=== PATIENT | female | born 1985 | race Caucasian/White ===

== ENCOUNTER → 2022-10-27 | Outpatient (CLI) | payer MEDICARE, MEDICAID, SELFPAY ==
--- NOTE | 2022-10-27 11:02 | RAD_ITS ---
INDICATION: POSTLAMINECTOMY SYNDROME -- CHECK SPINAL CORD STIM LEADS EXAMINATION/TECHNIQUE: X-RAY - XR Spine Lumbar 2 or 3 Views COMPARISON: Thoracic spine radiograph on same day. FINDINGS: VERTEBRAE: 5 nonrib-bearing lumbar-type vertebra with normal morphology. Prior laminectomy and posterior transpedicular fixation L5-S1 with disc spacer. No evidence of hardware failure. No fracture or acute compression deformity. No spondylolisthesis. Preservation of the normal lumbar lordosis. No significant facet arthropathy. DISCS: Disc spaces are maintained. INCLUDED ABDOMEN: Right upper quadrant surgical clips are present. Dual-lead intrathecal nerve stimulator noted entering at T12-L1 and projecting cephalad without evidence of lead disruption in the study field of view. RAD/Lumbar Spine 2 or 3 Views IMPRESSION: Intrathecal nerve stimulator as above. Laminectomy changes without evidence of hardware failure. No evidence of lumbar spinal fracture or spondylolisthesis. Electronically Signed: Marc Miguel MD at 6:36 EST ,
--- NOTE | 2022-10-27 11:02 | RAD_ITS ---
INDICATION: POSTLAMINECTOMY SYNDROME -- CHECK SPINAL CORD STIM LEADS EXAMINATION/TECHNIQUE: X-RAY - XR Spine Thoracic 2 Views COMPARISON: Lumbar spine radiograph on same day FINDINGS: VERTEBRAE: 12 rib-bearing thoracic type vertebra with normal morphology. Slight levocurvature of the lower thoracic spine. No listhesis. No fracture or compression deformity. 2-lead Intrathecal nerve stimulator noted with cephalad tip at superior endplate T8 and mid T8 vertebral body without disruption within the study field of view. DISCS: Disc spaces are maintained. INCLUDED CHEST/ABDOMEN: No acute abnormalities. RAD/Thoracic Spine 3 Views IMPRESSION: No evidence of thoracic spinal fracture or spondylolisthesis. Intrathecal neurostimulator as above. Electronically Signed: Marc Miguel MD at 6:32 EST ,
== END | disposition home or self-care (01) ==
LOC: RAD 11:00
PROVIDERS: PCP Internal Medicine; Referring Provider Anesthesiology Pain Medicine; Visit Provider Anesthesiology Pain Medicine
DX: M96.1 Postlaminectomy syndrome, not elsewhere classified (principal)
CPT/HCPCS: 72072; 72100

== ENCOUNTER → 2022-12-16 | Outpatient (CLI) | payer MEDICARE, MEDICAID, SELFPAY ==
[2022-12-16 15:05] LABS: Free T3 6.3 pg/mL (2.18-3.98); T4 Free Direct 1.21 ng/dL (0.76-1.46); Thyroid Stim Hormone (TSH) < 0.01 uIU/mL (0.358-3.74)
== END | disposition home or self-care (01) ==
LOC: LAB 14:04
PROVIDERS: PCP Internal Medicine; Referring Provider Internal Medicine Endocrinology, Diabetes & Metabolism; Visit Provider Internal Medicine Endocrinology, Diabetes & Metabolism
DX: E05.00 Thyrotoxicosis with diffuse goiter without thyrotoxic crisis or storm (principal)
CPT/HCPCS: 36415; 84439; 84443; 84481

== ENCOUNTER → 2023-03-30 | Outpatient (CLI) | payer MEDICARE, MEDICAID, SELFPAY ==
[2023-03-30 11:30] LABS: Amphetamine Urine VISTA NEGATIVE (<1000 ng/mL); Barbiturate Urine VISTA NEGATIVE (< 200 ng/mL); Benzodiazepine Urine VISTA NEGATIVE (< 200 ng/mL); Cocaine Urine VISTA NEGATIVE (< 300 ng/mL); Ecstacy Urine VISTA NEGATIVE (< 500 ng/mL); Methadone Urine VISTA NEGATIVE (< 300 ng/mL); PCP Urine VISTA NEGATIVE (< 25 ng/mL); THC Urine VISTA NEGATIVE (< 50 ng/mL); Vista UDS pH Range 5
== END | disposition home or self-care (01) ==
PROVIDERS: PCP Internal Medicine; Referring Provider Anesthesiology Pain Medicine; Visit Provider Anesthesiology Pain Medicine
DX: F11.20 Opioid dependence, uncomplicated (principal)
CPT/HCPCS: 80307